=== PATIENT | female | born 1995 | race Caucasian/White ===

== ENCOUNTER 2017-06-28 19:48 | Emergency (ER) | payer BC ==
[2017-06-28] MEDS ORDERED: NS 0.9% 1000 ML* 1,000 ML IV ONE (22:04)
[2017-06-28 22:26] LABS: Urine Bacteria 1+ (Absent); Urine Bilirubin Negative (Negative); Urine Glucose Negative (Negative); Urine Nitrite Negative (Negative)
[2017-06-29 00:05] LABS: Hematocrit 38 % (35-47); Hemoglobin 12.7 g/dl (12.0-16.0); Mean Corpuscular HGB Conc 33 g/dl (31-36); Mean Corpuscular Hemoglobin 29 pg (27-31); Mean Corpuscular Volume 87 fL (80-97); Mean Platelet Volume 8 um3 (7.4-10.4); Red Blood Count 4.41 10^6/ul (4.0-5.4); Red Cell Distribution Width 13 % (10.5-15)
[2017-06-29 00:22] LABS: Albumin 4.1 g/dL (3.2-5.2); BUN/Creatinine Ratio 14.8 (8-20); Calcium 9.1 mg/dL (8.6-10.3); EGFR African American 183.3 (>60); EGFR Non-African American 142.5 (>60); Globulin 2.9 g/dL (2-4); Total Bilirubin 0.4 mg/dL (0.2-1.0)
[2017-06-29] MEDS ORDERED: Morphine INJ* 4 MG/ML 1 ML SYRINGE IV ONE (00:24)
[2017-06-29] MEDS ORDERED: Ondansetron INJ* 2 MG/ML VIAL IV ONE (00:24)
[2017-06-29] MEDS ORDERED: Iohexol 300* (CONTRAST) 10 ML SDV IV ONE (00:56)
[2017-06-29 05:17] VITALS: BP 99/53
--- NOTE | 2017-06-29 06:10 | ED ---
Carmelo Almeida Rebecca, scribed for Mathew Cerda on 06/28/17 at 2204 . Abdominal Pain/Female - HPI Summary HPI Summary: Pt is a 21 y/o F who presents to ED c/o RLQ pain. Sx began 2 days ago, worsening today. Pain is currently mild ranked 3/10. Denies any other symptoms including N/V, fever, hematuria, vaginal bleeding and vaginal discharge. PMHx ovarian cyst. - History of Current Complaint Chief Complaint: EDAbdPain Stated Complaint: ABD PAIN RT SIDE Time Seen by Provider: 06/28/17 21:39 Hx Obtained From: Patient Hx Last Menstrual Period: 09/10/16 Onset/Duration: Lasting Days - 2 days, Still Present, Worse Since - today Severity Currently: Mild Pain Intensity: 3 Pain Scale Used: 0-10 Numeric Location: Discrete At: RLQ Associated Signs and Symptoms: Positive: Negative. Negative: Fever, Vaginal Bleeding, Vaginal Discharge, Nausea, Vomiting Allergies/Adverse Reactions: Allergies Allergy/AdvReac Type Severity Reaction Status Date / Time No Known Allergies Allergy Verified 06/28/17 19:55 PMH/Surg Hx/FS Hx/Imm Hx Cardiovascular History: Denies: Hx Hypertension History: Reports: Other Problems/Disorders - Hx ovarian cyst - Surgical History Surgery Procedure, Year, and Place: Burst cyst- Part of ovary removed Infectious Disease History: No Infectious Disease History: Denies: Traveled Outside the [place] in Last 30 Days - Family History Known Family History: Negative: Hypertension, Diabetes - Social History Alcohol Use: Weekly Substance Use Type: Reports: None Smoking Status (MU): Never Smoked Tobacco Review of Systems Negative: Fever Positive: Abdominal Pain - RLQ abd pain. Negative: Vomiting, Nausea Positive: other - NEGATIVE: vaginal bleeding. Negative: discharge, hematuria All Other Systems Reviewed And Are Negative: Yes Physical Exam - Summary Physical Exam Summary: Appearance: Well appearing, no pain distress Skin: warm, dry, reflects adequate perfusion Head/face: normal Eyes: EOMI, AMADOU ENT: normal Neck: supple, nontender Respiratory: CTA, breath sounds present Cardiovascular: RRR, pulses symmetrical Abdomen: tenderness in the RUQ and RLQ, soft Bowel: present Musculoskeletal: normal, strength/ROM intact Neuro: normal, sensory motor intact, A&Ox3 Triage Information Reviewed: Yes Vital Signs On Initial Exam: Initial Vitals Temp Pulse Resp BP Pulse Ox 97.7 F 88 16 118/74 99 06/28/17 19:56 06/28/17 19:56 06/28/17 19:56 06/28/17 19:56 06/28/17 19:56 Vital Signs Reviewed: Yes Diagnostics - Vital Signs Vital Signs Temp Pulse Resp BP Pulse Ox 06/28/17 19:56 97.7 F 88 16 118/74 99 - Laboratory Result Diagrams: 06/28/17 23:50 06/28/17 23:50 Lab Statement: Any lab studies that have been ordered have been reviewed, and results considered in the medical decision making process. - CT CT Abd/Pel CT Interpretation: No Acute Changes - 15 mm involuting right ovarian cyst without free fluid. No definite acute pathology. ED physician reviewed this radiology report and agrees. CT Interpretation Completed By: Radiologist - Ultrasound No standard instances Ultrasound Interpretation: No Acute Changes - Abdomen US: Normal exam. ED physician reviewed this radiology report and agrees., Positive (See Comments) - Pelvic US: 1.3 cm collapsing left ovarian cyst with small amount of free fluid but no torsion. ED physician reviewed this radiology report and agrees. Ultrasound Interpretation Completed By: Radiologist Re-Evaluation - Re-Evaluation First Eval Re-Evaluation Time: 04:02 Comment: Discussed results obtained thus far. Abdominal Pain Fem Course/Dx - Course Course Of Treatment: Pt is a 21 y/o F who presents to ED c/o RLQ pain. Sx began 2 days ago, worsening today. Pain is currently mild ranked 3/10. Denies any other symptoms including N/V, fever, hematuria, vaginal bleeding and vaginal discharge. PMHx ovarian cyst. Abd US reveals no acute findings. CT Abd/Pel reveals "15 mm involuting right ovarian cyst without free fluid. No definite acute pathology." Pelvic US reveals "Pelvic US: 1.3 cm collapsing left ovarian cyst with small amount of free fluid but no torsion." UA shows urine color: yellow, appearance; cloudy, specific gravity: 1.009, blood: 2+, leukocyte esterase: 3+, WBC: 3+, RBC: 3+. bacteria: 1+. In the ED course, the pt was administered zofran, morphine and fluids. She will be D/C to home with D xof flank pain and UTI with Rx for Motrin and Levaquin and a follow up with hre PCP. She understands and agrees. - Diagnoses Provider Diagnoses: UTI (urinary tract infection), Flank pain Discharge - Discharge Plan Condition: Stable Disposition: HOME Prescriptions: Ibuprofen TAB* [Motrin TAB* 600 MG] 600 mg PO Q8H PRN #15 tab MDD 3 PRN Reason: Pain Levofloxacin TAB* [Levaquin TAB*] 500 mg PO DAILY #5 tab Patient Education Materials: Urinary Tract Infection in Women (ED), Flank Pain (ED) Referrals: [facility] [Primary Care Provider] - 3 Days The documentation as recorded by the Carmelo talavera Rebecca accurately reflects the service I personally performed and the decisions made by , Mathew Cerda.
--- NOTE | 2017-06-29 07:42 | RAD ---
HISTORY: Right upper quadrant pain, cholecystitis COMPARISONS: CT dated June 29, 2017 TECHNIQUE: Multiple transverse and longitudinal ultrasound images were obtained of the right upper quadrant of the abdomen using grayscale and color Doppler imaging. FINDINGS: LIVER: The liver is normal in shape, size, contour, and echogenicity. There are no focal parenchymal masses. There is normal hepatopedal flow of the portal vein on Doppler imaging. BILIARY TREE: There is no intrahepatic or extrahepatic biliary dilatation. The common duct measures 0.2 cm. GALLBLADDER: The gallbladder is well-visualized. There is no cholelithiasis, gallbladder wall thickening, pericholecystic fluid, or sonographic Yeager sign. PANCREAS: The pancreas is obscured by overlying bowel gas. RIGHT KIDNEY: The right kidney is normal in shape, size, contour, and echogenicity. There is no hydronephrosis or nephrolithiasis. The right kidney measures 10.7 x 3.9 x 5.1 cm. AORTA AND IVC: The aorta and IVC are unremarkable. FLUID: There are no pleural effusions. There is no free fluid within the hepatorenal recess. OTHER FINDINGS: None. IMPRESSION: NO ACUTE SONOGRAPHIC PATHOLOGY OF THE VISUALIZED PORTION OF THE ABDOMEN.
--- NOTE | 2017-06-29 08:07 | RAD ---
CLINICAL HISTORY: 5 hours of right flank and periumbilical pain. COMPARISON: Same day pelvic ultrasound. TECHNIQUE: Contrast enhanced CT examination of the abdomen and pelvis from the lung bases through the initial tuberosities. The patient received 76 mL Omnipaque 300 intravenously prior to imaging.The patient received oral contrast as well prior to imaging. FINDINGS: VISUALIZED LUNG BASES: The visualized lung bases are grossly clear. There is no pleural effusion. ABDOMEN AND PELVIS: The liver, spleen, pancreas and adrenal glands are grossly normal in appearance. The gallbladder is normal. The kidneys are normal in appearance without focal mass, calcification or signs of hydronephrosis. The oral contrast has only progressed as far as the midpoint of the small bowel with its limits evaluation of the more distal small bowel and colon. The small and large bowel are not distended. The patient's normal appendix is identified in the right lower quadrant measuring 6 mm in diameter (coronal image 44). There is no gross retroperitoneal or mesenteric lymphadenopathy. In the right adnexa there is a 1.5 cm involuting follicle exhibiting peripheral enhancement. The uterus is normal in appearance and appropriate for the patient's age. There is trace fluid in the cul-de-sac. The abdominal aorta and iliac arteries are normal in course and diameter. There are no sinister bone lesions. IMPRESSION: CT findings are consistent with an involuting right ovarian follicle with trace free pelvic fluid.
--- NOTE | 2017-06-29 08:15 | RAD ---
Indication: RIGHT pelvic pain. Previous partial unilateral ovary resection. Comparison: CT abdomen pelvis of the same date. Technique: Transvaginal pelvic ultrasound. Report: 7.8 x 3.9 x 4.8 cm retroverted uterus with 13 mm endometrium. No focal uterine lesions evident. Physiologic trace free fluid in the cul-de-sac. 3.6 x 2.9 x 2.6 cm RIGHT ovary with documented vascular flow is remarkable for multiple small follicles. Corresponding with the CT finding there is a 1.3 x 0.7 x 0.9 cm mildly complex cystic lesion with a reticulated pattern of low level internal echoes devoid of intrinsic vascularity with some inward directed margins consistent with an involuting hemorrhagic cyst. 2.8 x 2.1 x 1.5 cm LEFT ovary with documented vascular flow is remarkable for multiple small follicles. IMPRESSION: 1.3 cm partially decompressed hemorrhagic cyst of the RIGHT ovary. The ovaries are normal in size and demonstrate normal vascular flow. Only a physiologic small volume of free pelvic fluid present.
== END 2017-06-29 05:18 | disposition home or self-care (01) ==
LOC: ED 19:48
DX: R10.31 Right lower quadrant pain (principal); N39.0 Urinary tract infection, site not specified; R10.9 Unspecified abdominal pain
CPT/HCPCS: 36415; 74177; 76705; 76830; 80053; 81003; 81015; 83690; 84702; 85025; 85610; 85730; 87077; 87086; 87186; 96374; 96375; 99284; J2270; J2405; Q9967